=== PATIENT | male | born 1965 | race Caucasian/White ===

== ENCOUNTER 2017-03-05 10:55 | Emergency (ER) | payer OTHER ==
[~2017-03-05] VITALS: Ht 167.6 cm; Wt 67.0 kg
[~2017-03-05 10:55] MED LIST: ASPI81TA28 PO; ATOR10TA88 PO; CHOL100010 PO; METF1TAB53 PO; PREG1CAP36 PO; PRLSR20 PO
[2017-03-05 10:57] VITALS: TEMP 36.7; Ht 167.6 cm; Wt 67.0 kg
[2017-03-05] MEDS ORDERED: LIDO/EPINEPHRINE/SOD BICARB 20 ML VIAL INFIL ONE (11:10)
[2017-03-05] MEDS ORDERED: DIPHTHERIA/TETANUS/PERTUSSIS 0.5 ML SYR/VIAL IM. ONE (11:15)
[2017-03-05] MEDS ORDERED: LIDOCAINE/EPINEPHRINE 1% 20 ML VIAL INFIL ONE (11:15)
--- NOTE | 2017-03-05 12:03 | EMERGENCY ROOM VISIT NOTE ---
History Report prepared by Raf: Carol Gilman Under the Supervision of: Dr. Rupreto Nicolas M.D. (Ruperto Nicolas M.D.) First contact with patient: 11:03 (Ruperto Nicolas M.D.) Chief Complaint: LACERATION/CUT (SUT/DERMABOND) Stated Complaint: CUT TO LEFT SIDE OF NECK Nursing Triage Summary: Pt presents with laceration to the posterior left side of neck from a piece of metal karen. Area still actively bleeding. (Ruperto Nicolas M.D.) History of Present Illness The patient is a 51 year old male who presents to the Emergency Room with complaints of persistent bleeding from a cut starting SUPPORT DBA. The patient ran into a piece of metal and got a cut on the back left side of his neck. He denies any weakness in his arm or legs, headache, or SOB. He is unsure of his last tetanus shot. He takes 1 aspirin a day. Source of History: patient Onset: SUPPORT DBA Position: neck Quality: other (bleeding) Timing: other (persistent) Associated Symptoms: No headache, No SOB, No weakness (Ruperto Nicolas M.D.) Review of Systems See HPI for pertinent positives & negatives. A total of 6 systems reviewed and were otherwise negative. (Ruperto Nicolas M.D.) Past Medical & Surgical Medical Problems: (1) Diabetes (2) Diabetic Ketoacidosis (3) Gastroesophageal reflux disease (4) Skin cancer (Jack Mensah PA-C) Family History Diabetes mellitus Heart disease (Ruperto Nicolas M.D.) Diabetes mellitus Heart disease (Jack Mensah PA-C) Social History Smoking Status: Never Smoker Alcohol Use: none Drug Use: none Marital Status: single Occupation Status: unemployed (Ruperto Nicolas M.D.) Current/Historical Medications Scheduled Aspirin (Aspirin Ec), 81 MG PO QAM Atorvastatin (Lipitor), 10 MG PO HS Cholecalciferol (Vitamin D), 2,000 INTER.UNIT PO BID Metformin Hcl (Glucophage Ext Rel), 1,000 MG PO BIDM Omeprazole (Prilosec), 20 MG PO HS Pregabalin (Lyrica), 25 MG PO TID Allergies Coded Allergies: No Known Allergies (Unverified , 03/05/17) Physical Exam Vital Signs Date Time Temp Pulse Resp B/P (MAP) Pulse Ox O2 Delivery O2 Flow Rate FiO2 03/05/17 10:57 36.7 70 16 139/91 97 Room Air (Jack Mensah PA-C) Physical Exam GENERAL: Patient is well appearing and in no acute distress. HEENT: No acute trauma, normocephalic atraumatic, mucous membranes moist, no nasal congestion, no scleral icterus. NECK: No stridor, no adenopathy, no meningismus, trachea is midline. LUNGS: No dyspnea. Clear to auscultation and equal bilaterally. No wheeze, no rhonchi. HEART: Regular rate and rhythm. No murmurs, rubs, gallops appreciated. EXTREMITIES: Normal motion all extremities, no cyanosis, no edema. NEUROLOGIC: Alert and oriented, no acute motor or sensory deficits, no focal weakness, cranial nerves grossly intact. SKIN: 6 cm curving laceration of the left upper shoulder/base of neck deep to the top of the muscle, no neurovascular compromise, minimal venous bleeding, not grossly contaminated. (Ruperto Nicolas M.D.) Medical Decision & Procedures Medications Administered Medications (Trade) Dose Ordered Sig/Lisbeth Route Start Time Stop Time Status Last Admin Dose Admin Lidocaine/ Epinephrine (Xylocaine/Epine 1% Inj) 20 ml NOW ONCE INFIL 03/05/17 11:15 03/05/17 11:16 DC 03/05/17 11:29 20 ML Diphtheria/ Pertussis/Tetanus Vacc (Adacel Inj) 0.5 ml ONCE ONCE IM. 03/05/17 11:15 03/05/17 11:16 DC 03/05/17 11:29 0.5 ML (Jack Mensah PA-C) ED Course 1103: The patient was evaluated in room C3. A complete history and physical exam was performed. 1115: Adacel Inj 0.5 ml IM, Lidocaine/Epinephrine 20 ml INFIL. 1120: The laceration was repaired by Jack Mensah PA-C. See his note for details. 1220: I reevaluated the patient. I discussed results and discharge instructions : he verbalized understanding and agreement. The patient is ready for discharge. (Ruperto Nicolas M.D.) Medical Decision 51 yr old male with laceration left shoulder. No neuro/vascular deficits. Just in to muscle belly without any difficulty with ROM arm, shoulder. No evidence of pneumothorax by exam. Stable and breathing comfortably in no distress. Tetanus update given. Sutured by [facility] Jack Mensah with excellent closure. (Ruperto Nicolas M.D.) Medication Reconcilliation Current Medication List: was personally reviewed by me (Ruperto Nicolas M.D.) Blood Pressure Screening Patient's blood pressure: Elevated blood pressure Blood pressure disposition: Elevated BP felt to be situational (Ruperto Nicolas M.D.) Impression Primary Impression: Laceration of shoulder, left Additional Impression: Bnsolnmceq-neddhfr-grhlyjgty (DTP) vaccination Scribe Attestation The scribe's documentation has been prepared under my direction and personally reviewed by me in its entirety. I confirm that the note above accurately reflects all work, treatment, procedures, and medical decision making performed by me. (Ruperto Nicolas M.D.) Departure Information Dispostion Home / Self-Care Referrals No Doctor, Assigned (PCP) Patient Instructions My [facility] Additional Instructions You have received 8 sutures on your shoulder. These sutures are NOT dissolvable and WILL need to be removed by a health care provider in 10-12 days. You can return to the Emergency Department or contact your Primary Care Provider to have the sutures removed. Proper wound care is essential for adequate wound healing and infection prevention. You can shower and clean the wound with soap and water. Do not scour over the wound, pat dry with a towel. Do not submerse the wound (i.e. bathe or dish wash) until the sutures have been removed. You can use an antibiotic ointment with a dressing over the wound for the next 3-4 days. After this time you may leave the wound dry and open to the air. If crust develops over the wound you can use a Q-tip to apply a 1:1 peroxide:water solution to clean the wound. Look for signs of infection of the wound including: increased pain, swelling, foul discharge, streaking, or increased temperature. If any of these are noticed you should return to the Emergency Department for further assessment and treatment. As with any laceration you may have received nerve damage to the surrounding tissues. This damage may or may not be permanent. You should keep the area covered with sunscreen for the first 6 months to 1 year when at risk for exposure to help minimize scarring. You can also use scar reducing creams or Vitamin E oil to help minimize scarring. For pain control, you can use the following [id number] medicines (if >12 yo): - Regular strength (325mg/tab) Tylenol (acetaminophen) 2 tabs every 4-6 hours as needed. Do not exceed 12 tablets in a 24 hour period. Avoid taking more than 3 grams (3000 mg) of Tylenol per day. This includes any other sources of acetaminophen you may take on a regular basis. - Regular strength (200 mg/tab) Advil (ibuprofen) 1-2 tabs every 4-6 hours as needed. Do not exceed a dose of 3200 mg per day. Return to the emergency department if your symptoms worsen despite treatment course outlined above. Please return to the emergency department with any new/concerning symptoms. Problem Qualifiers
--- NOTE | 2017-03-05 12:04 | EMERGENCY ROOM VISIT NOTE ---
ED Visit Note Patient was seen and evaluated by Dr. Rapp. I was asked to perform primary wound closure. Risks and benefits of performing primary wound closure versus no repair were discussed with the patient who verbalizes understanding. Verbal consent was obtained prior to performing the procedure. 3 cc of 1% buffered lidocaine with epinephrine was used to anesthetize the left shoulder laceration. The wound was cleansed and prepped in the typical sterile fashion utilizing normal saline and Betadine. The wound was sterilely draped. Once proper anesthetization was established, the wound was further examined and demonstrated a laceration was down to the depth of the adipose cells, without muscle or vascular compromise. He was found to be neurologically intact. The wound was copiously irrigated with normal saline and Betadine. The wound was closed using 3 simple, 4-0 Vicryl sutures as well as 8 simple, 5-0 nylon sutures with the wound edges being well approximated. Patient tolerated the procedure well. No complications were met. The wound was cleansed and dressed with a Bacitracin dressing. Patient received their Adacel vaccination. Patient educated on worrisome symptoms for return visit to the Emergency Department. Patient discharged to home in good condition. Please refer to Dr. Nicolas's note regarding the rest of the patient's stay. Total Laceration length: 6cm
[2017-03-05 12:21] VITALS: BP 135/82; PULSE 62; O2SAT 99
== END 2017-03-05 12:21 | disposition home or self-care (01) ==
LOC: C.EDB 10:57 → C.EDC 12:21
DX: S41.012A Laceration without foreign body of left shoulder, initial encounter (principal); W45.8XXA Other foreign body or object entering through skin, initial encounter; Y92.89 Other specified places as the place of occurrence of the external cause; Z23 Encounter for immunization; E11.9 Type 2 diabetes mellitus without complications; K21.9 Gastro-esophageal reflux disease without esophagitis; Z85.828 Personal history of other malignant neoplasm of skin; Z83.3 Family history of diabetes mellitus; Z82.49 Family history of ischemic heart disease and other diseases of the circulatory system; Z79.82 Long term (current) use of aspirin; Z79.899 Other long term (current) drug therapy